=== PATIENT | male | born 1965 | race Caucasian/White ===

== ENCOUNTER 2023-11-07 19:04 | Emergency (ER) | payer OTHER ==
[2023-11-07 19:19] VITALS: RESP 18; TEMP 97.8
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
[2023-11-07] MEDS: DIPH,PERTUS(ACELL)TETVAC-LF 0.5 ML VIAL IM ONE (20:33)
[2023-11-07 21:11] VITALS: BP 140/90; PULSE 94
== END 2023-11-07 21:13 | disposition home or self-care (01) ==
LOC: EC 19:04
DX: V89.2XXA Person injured in unspecified motor-vehicle accident, traffic, initial encounter
CPT/HCPCS: 12004; 90471; 90715; 99283